=== PATIENT | male | born 1950 | race Caucasian/White ===

== ENCOUNTER 2024-10-01 15:42 | Emergency (ER) | payer MEDICARE, OTHER ==
[~2024-10-01] VITALS: Ht 182.9 cm; Wt 94.8 kg
[2024-10-01 15:51] VITALS: BP 149/107; TEMP 98.3
[2024-10-01] MEDS ORDERED: ALBUTEROL SULFATE 8 GM HFA.AER.AD IH ONE (17:00)
[2024-10-01] MEDS ORDERED: METH4TAB3 PO (17:46)
[2024-10-01] MEDS ORDERED: AZIT250T PO (17:46)
[2024-10-01] MEDS ORDERED: ALBU18HF2 INH (17:46)
[2024-10-01 18:03] VITALS: O2SAT 99
== END 2024-10-01 18:03 | disposition home or self-care (01) ==
LOC: ER 15:54
DX: J18.9 Pneumonia, unspecified organism (principal); R06.2 Wheezing; R05.9 Cough, unspecified; R06.02 Shortness of breath; R50.9 Fever, unspecified; I10 Essential (primary) hypertension; E78.5 Hyperlipidemia, unspecified; Z91.048 Other nonmedicinal substance allergy status; Z90.49 Acquired absence of other specified parts of digestive tract
CPT/HCPCS: 71045-TC

== ENCOUNTER 2024-10-12 13:30 | Emergency (ER) | payer MEDICARE, OTHER ==
[~2024-10-12] VITALS: Ht 182.9 cm; Wt 94.8 kg
[~2024-10-12 13:30] MED LIST: ALBU18HF2 INH; AZIT250T PO; METH4TAB3 PO
[2024-10-12 13:56] VITALS: BP 146/82; TEMP 97.9; O2SAT 0
[2024-10-12] MEDS ORDERED: ALBU18HF2 INH (14:28)
[2024-10-12] MEDS ORDERED: OXYM15MI4 NS (14:28)
== END 2024-10-12 14:38 | disposition home or self-care (01) ==
LOC: ER 13:53
DX: B34.9 Viral infection, unspecified (principal); Z90.49 Acquired absence of other specified parts of digestive tract